=== PATIENT | female | born 1955 | race Asian ===

== ENCOUNTER 2021-09-17 08:51 | Inpatient (IN) | payer MEDICARE, MEDICAID ==
[~2021-09-17] VITALS: Ht 152.4 cm; Wt 48.7 kg
[2021-09-17] MEDS ORDERED: ACETAMINOPHEN 325 MG TABLET PO PRN (11:15)
[2021-09-17] MEDS ORDERED: ONDANSETRON HCL 4 MG/2 ML VIAL IVP PRN (11:15)
[2021-09-17 11:23] LABS: COVID AG,FIA SOURCE NASAL SWAB
[2021-09-17 11:27] LABS: BASOPHILS % (AUTO) 0.5 % (0.0-2.0); HEMATOCRIT 32.1 % (36-46); HEMOGLOBIN 10.3 g/dL (12.0-16.0); LYMPHOCYTES # (AUTO) 1.3 K/uL (1.0-4.8); LYMPHOCYTES % (AUTO) 17.7 % (22.0-44.0); MEAN CORPUSCULAR HEMOGLOBIN 20.5 pg (26.0-34.0); MEAN CORPUSCULAR HGB CONC 32.1 G/dL (31.0-37.0); MEAN CORPUSCULAR VOLUME 64 fL (80-100); MONOCYTES # (AUTO) 0.5 K/uL (0.1-1.0); MONOCYTES % (AUTO) 6.3 % (2.0-9.0); NEUTROPHILS # (AUTO) 4.4 K/uL (1.8-7.7); NEUTROPHILS % (AUTO) 58.5 % (40.0-70.0); PLATELET COUNT (AUTO) 542 K/uL (150-450); RED BLOOD CELL COUNT(AUTO) 5.02 MIL/uL (4.00-5.20); RED CELL DISTRIBUTION WIDTH 15.7 % (11.5-14.5)
[2021-09-17] MEDS ORDERED: SODIUM CHLORIDE 0.9% 1,000 ML IV ONE ×2 (11:30→13:15)
[2021-09-17 11:38] LABS: INR 1.8 (0.9-1.1); PROTHROMBIN TIME 18.2 SEC (9.4-11.6)
[2021-09-17 11:40] LABS: ANION GAP 22 mmol/L (8-16); CALCIUM, TOTAL 7.5 mg/dL (8.8-10.5); CARBON DIOXIDE 14 mmol/L (22-29); CHLORIDE 95 mmol/L (98-107); CREATININE 8.21 mg/dL (0.60-1.30); GLOMERULAR FILTR. RATE CALC 5 mL/min (>60); GLUCOSE,RANDOM 121 mg/dL (70-110); POTASSIUM 3.9 mmol/L (3.5-5.1); SODIUM SERUM 131 mmol/L (136-145); UREA NITROGEN, BLOOD 67 mg/dL (7-18)
[2021-09-17 11:52] LABS: ALANINE AMINOTRANSFERASE 75 U/L (12-78); ALBUMIN 2.7 g/dL (3.4-5.0); ALKALINE PHOSPHATASE 536 U/L (46-116); ASPARTATE AMINOTRANSFERASE 40 U/L (15-37); BILIRUBIN,TOTAL 1.4 mg/dL (0.1-1.0); THYROID STIMULATING HORMONE 0.16 uIU/mL (0.36-3.74); TOTAL PROTEIN, SERUM 7.7 g/dL (6.4-8.2)
[2021-09-17] MEDS ORDERED: RINGERS SOLUTION,LACTATED 1,000 ML IV ONE (13:00)
[2021-09-17 15:27] VITALS: BP 111/75
[2021-09-17] MEDS: HEPARIN SODIUM,PORCINE 5,000 UNITS/ML VIAL SQ SCH ×2 (16:03→23:39)
[2021-09-17 18:26] LABS: CALCIUM, TOTAL 7.1 mg/dL (8.8-10.5); CREATININE 7.52 mg/dL (0.60-1.30); POTASSIUM 3.9 mmol/L (3.5-5.1)
[2021-09-17 18:53] LABS: APPEARANCE,URINE CLEAR (CLEAR); BILIRUBIN,URINE NEGATIVE (NEGATIVE); GLUCOSE, URINE (UA) NEGATIVE (NEGATIVE); KETONES,URINE NEGATIVE (NEGATIVE); LEUKOCYTE ESTERASE ,URINE NEGATIVE (NEGATIVE); NITRATE,URINE NEGATIVE (NEGATIVE); OCCULT BLOOD,URINE SMALL (NEGATIVE); PH,URINE 5.5 (5.0-8.0); PROTEIN,URINE 30-70 mg/dL (NEGATIVE); SPECIFIC GRAVITIY, URINE 1.007 (1.003-1.030); UROBILINOGEN,URINE <=1.0 mg/dL (<=1.0)
[2021-09-17 18:59] LABS: AMPHET/METH SCREEN,URINE NEGATIVE (NEGATIVE); BARBITURATE SCREEN, URINE NEGATIVE (NEGATIVE); BENZODIAZEPINES SCREEN,URINE NEGATIVE (NEGATIVE); CANNABINOID SCREEN,URINE NEGATIVE (NEGATIVE); COCAINE SCREEN,URINE NEGATIVE (NEGATIVE); METHADONE SCREEN, URINE NEGATIVE (NEGATIVE); OPIATE SCREEN,URINE NEGATIVE (NEGATIVE)
[2021-09-17 19:00] LABS: PHENCYCLIDINE SCREEN,URINE NEGATIVE (NEGATIVE)
[2021-09-17 19:05] LABS: BACTERIA,URINE None Seen /HPF (None Seen); WBC,URINE 0-2 /HPF (0-5)
[2021-09-17 19:50] VITALS: BP 109/53
[2021-09-17] MEDS: DOCUSATE SODIUM 100 MG CAPSULE PO SCH (20:43)
[2021-09-18 04:30] VITALS: BP 120/52
[2021-09-18] MEDS ORDERED: SODIUM CHLORIDE 0.9% 1,000 ML IV ONE (06:00)
[2021-09-18 07:32] LABS: CALCIUM, TOTAL 7.6 mg/dL (8.8-10.5); CHOL/HDL RATIO 7.1 (3.9-5.7); CREATININE 6.46 mg/dL (0.60-1.30); POTASSIUM 3.7 mmol/L (3.5-5.1)
[2021-09-18 07:33] VITALS: BP 129/53
[2021-09-18] MEDS: ATORVASTATIN CALCIUM 20 MG TABLET PO SCH (08:42)
[2021-09-18] MEDS: DOCUSATE SODIUM 100 MG CAPSULE PO SCH ×2 (08:42→20:29)
[2021-09-18] MEDS: METHIMAZOLE 5 MG TABLET PO SCH ×3 (08:42→23:39)
[2021-09-18] MEDS: ASPIRIN 81 MG CHEWABLE TABLET PO SCH (08:42)
[2021-09-18] MEDS: FAMOTIDINE 20 MG TABLET PO SCH (08:43)
[2021-09-18] MEDS ORDERED: SODIUM BICARBONATE 75 MEQ in DEXTROSE 5%-0.45% SODIUM CHL 1,000 ML IV ONE (10:15)
[2021-09-18] MEDS: VITAMIN B COMP/VIT C/FOLIC ACID CAPSULE PO SCH (11:06)
[2021-09-18 11:07] LABS: HEPATITIS C AB (EIA) <0.1 s/co ratio (0.0-0.9)
[2021-09-18 11:28] LABS: HEMOGLOBIN A1C 5.5 % (3.8-5.6)
[2021-09-18] MEDS ORDERED: AMLO-258 PO (12:16)
[2021-09-18] MEDS ORDERED: LISI-893 PO (12:16)
[2021-09-18 15:09] VITALS: BP 123/57
[2021-09-18 19:20] VITALS: BP 116/57
[2021-09-19 04:35] VITALS: BP 129/67
[2021-09-19 05:16] LABS: CALCIUM, TOTAL 8.5 mg/dL (8.8-10.5); CREATININE 4.32 mg/dL (0.60-1.30); POTASSIUM 3.4 mmol/L (3.5-5.1)
[2021-09-19 07:23] VITALS: BP 127/69
[2021-09-19] MEDS: ATORVASTATIN CALCIUM 20 MG TABLET PO SCH (08:50)
[2021-09-19] MEDS: ASPIRIN 81 MG CHEWABLE TABLET PO SCH (08:50)
[2021-09-19] MEDS: FAMOTIDINE 20 MG TABLET PO SCH (08:50)
[2021-09-19] MEDS: DOCUSATE SODIUM 100 MG CAPSULE PO SCH ×2 (08:50→20:51)
[2021-09-19] MEDS: VITAMIN B COMP/VIT C/FOLIC ACID CAPSULE PO SCH (08:51)
[2021-09-19] MEDS: METHIMAZOLE 5 MG TABLET PO SCH ×3 (08:53→23:32)
[2021-09-19] MEDS ORDERED: CHOLECALCIFEROL (VIT D3) 50,000 UNITS [1,250 MCG] CAPSULE PO ONE (09:00)
[2021-09-19 16:18] VITALS: BP 150/65
[2021-09-19 19:14] VITALS: BP 154/71
[2021-09-19 21:49] VITALS: BP 130/67
[2021-09-20 04:07] VITALS: BP 134/77
[2021-09-20 06:12] LABS: CALCIUM, TOTAL 8.6 mg/dL (8.8-10.5); CREATININE 3.04 mg/dL (0.60-1.30); POTASSIUM 3.3 mmol/L (3.5-5.1)
[2021-09-20 07:21] VITALS: BP 137/77
[2021-09-20] MEDS: METHIMAZOLE 5 MG TABLET PO SCH (08:21)
[2021-09-20] MEDS: ATORVASTATIN CALCIUM 20 MG TABLET PO SCH (08:22)
[2021-09-20] MEDS: ASPIRIN 81 MG CHEWABLE TABLET PO SCH (08:22)
[2021-09-20] MEDS: VITAMIN B COMP/VIT C/FOLIC ACID CAPSULE PO SCH (08:22)
[2021-09-20] MEDS: DOCUSATE SODIUM 100 MG CAPSULE PO SCH (08:22)
[2021-09-20] MEDS: FAMOTIDINE 20 MG TABLET PO SCH (08:22)
[2021-09-20] MEDS ORDERED: ASPI81TA87 PO (09:51)
[2021-09-20] MEDS ORDERED: METH-386 PO (09:51)
[2021-09-20] MEDS ORDERED: ATOR20TA86 PO (09:52)
[2021-09-20] MEDS ORDERED: CHOL500043 PO (09:55)
[2021-09-20] MEDS ORDERED: POTASSIUM CHLORIDE 20 MEQ ER TABLET PO ONE (10:00)
== END 2021-09-20 11:25 | disposition home or self-care (01) | DRG 64 ==
LOC: EMS 08:51 → 6S 14:14 → 6N 15:51
PROVIDERS: ADMIT Internal Medicine; ATTEND Internal Medicine
DX: I63.9 Cerebral infarction, unspecified (principal); G93.41 Metabolic encephalopathy; N17.9 Acute kidney failure, unspecified; E87.2 Acidosis; D68.9 Coagulation defect, unspecified; N13.30 Unspecified hydronephrosis; I12.9 Hypertensive chronic kidney disease with stage 1 through stage 4 chronic kidney disease, or unspecified chronic kidney disease; D63.1 Anemia in chronic kidney disease; E05.90 Thyrotoxicosis, unspecified without thyrotoxic crisis or storm; E78.00 Pure hypercholesterolemia, unspecified; E78.5 Hyperlipidemia, unspecified; F10.20 Alcohol dependence, uncomplicated; K76.0 Fatty (change of) liver, not elsewhere classified; N18.9 Chronic kidney disease, unspecified; F99 Mental disorder, not otherwise specified; E87.6 Hypokalemia; Z20.822 Contact with and (suspected) exposure to COVID-19; E55.9 Vitamin D deficiency, unspecified; F17.210 Nicotine dependence, cigarettes, uncomplicated; Y90.9 Presence of alcohol in blood, level not specified
CPT/HCPCS: 70450; 70551; 76700; 80048; 80053; 80061; 80074; 81001; 82140; 82306; 82607; 82728; 83036; 83540; 83550; 84443; 85025; 85610; 86592; 97162; 97166; 97535; 99285; G0480; G0481; J1644; J3490; J7030; J7120